=== PATIENT | male | born 1970 | race African-American/Black ===

== ENCOUNTER 2019-03-25 19:30 | Emergency (ER) | payer SELFPAY ==
[~2019-03-25] VITALS: Ht 193 cm; Wt 95.0 kg
[2019-03-25] MEDS ORDERED: MORPHINE SULFATE 4 MG/ML CPJ (NOT FOR IM USE) IV STA (19:49)
[2019-03-25] MEDS ORDERED: ONDANSETRON HCL 4MG/2ML INJ IV STA (19:49)
[2019-03-25] MEDS ORDERED: SODIUM CHLORIDE 0.9% 1,000 ML IV ONE (19:49)
[2019-03-25] MEDS ORDERED: DIATR MEGLU/DIATRIZOATE SOLN 30ML PO ONE (20:00)
[2019-03-25 20:30] LABS: BASOPHILS % 0.8 % (0.0-2.0); EOSINOPHILS % 0.8 % (0.0-5.0); HEMATOCRIT. 42.4 % (42.0-52.0); HEMOGLOBIN. 14.5 g/dL (14.0-18.0); LYMPHOCYTES % 10.8 % (20.0-50.0); MEAN CORPUSCULAR HEMOGLOBIN 28.8 pg (28.0-32.0); MEAN CORPUSCULAR VOLUME 84.3 fL (80.0-94.0); MEAN PLATELET VOLUME 7.4 fl (7.4-10.4); MONOCYTES % 5.7 % (2.0-8.0); NEUTROPHILS % 81.9 % (40.0-76.0); PLATELET 220 x1000/uL (130-400); RED BLOOD CELL COUNT 5.03 mill/uL (4.7-6.1); RED CELL DISTRIBUTION WIDTH 14.2 % (11.6-14.6)
[2019-03-25] MEDS ORDERED: IOHEXOL-12MG/ML 500 ML ORAL.CONC PO ONE (20:36)
[2019-03-25 20:37] LABS: CHLORIDE 104 mEq/L (98-107); PARTIAL THROMBOPLASTIN TIME 27.9 sec (23.4-31.0)
[2019-03-25 22:29] LABS: CLARITY URINE TURBID (CLEAR); COLOR URINE YELLOW (YELLOW); KETONES URINE NEGATIVE (NEGATIVE); LEUKOCYTE ESTERASE URINE NEGATIVE (NEGATIVE); NITRITE URINE NEGATIVE (NEGATIVE); OCCULT BLOOD URINE TRACE (NEGATIVE); PH URINE >=9.0 (4.5-8.0); PROTEIN URINE NEGATIVE (NEGATIVE); SPECIFIC GRAVITY URINE 1.014 (1.005-1.030); UROBILINOGEN URINE 0.2 E.U./dL (0.2-1.0)
[2019-03-25 22:49] LABS: *AMPHETAMINES SCREEN URINE NEGATIVE (NEGATIVE); *BARBITURATES SCREEN URINE NEGATIVE (NEGATIVE); *BENZODIAZEPINES SCREEN URINE NEGATIVE (NEGATIVE); *COCAINE SCREEN URINE NEGATIVE (NEGATIVE); CANNABINOID URINE SCREEN PRESUMTIVE POSITIVE (NEGATIVE); PHENCYCLIDINE URINE SCREEN NEGATIVE (NEGATIVE)
[2019-03-25 22:50] LABS: METHADONE URINE SCREEN NEGATIVE (NEGATIVE); OPIATES URINE SCREEN PRESUMTIVE POSITIVE (NEGATIVE)
[2019-03-25 23:00] VITALS: BP 146/83
[2019-03-25] MEDS ORDERED: IOHEXOL-300 100 ML BOTTLE ONE (23:33)
== END 2019-03-26 01:48 | disposition home or self-care (01) ==
LOC: ER 19:30
DX: R10.84 Generalized abdominal pain (principal); K50.90 Crohn's disease, unspecified, without complications; F12.10 Cannabis abuse, uncomplicated; Z87.828 Personal history of other (healed) physical injury and trauma; Z98.890 Other specified postprocedural states
CPT/HCPCS: 36415; 71045; 74177; 80053; 80305; 81003; 83690; 85025; 85610; 85730; 86850; 86900; 86901; 93005; 96361; 96374; 96375; 99284; J2270; J2405; J7030; Q9963; Q9967; Z7610